=== PATIENT | male | born 1975 | race Caucasian/White ===

== ENCOUNTER 2016-07-18 12:22 | Day surgery (SDC) | payer OTHER ==
--- NOTE | ~2016-07-18 | OP ---
Record Of Operation [facility] [address] [place]. [address] NAME: JEAN MENDOZA : 75 STATUS : [facility]#: [id number] AGE: 41 ADM/REG DATE : 07/18/16 MR#: [id number] REPORT SERV DATE: 07/19/16 DICTATED BY: SANCHEZ BRAGA DATE: 07/19/16 REPORT STATUS : Draft TRANSCRIBED BY: MODL DATE: 07/19/16 DATE OF PROCEDURE: 07/18/2016 PREOPERATIVE DIAGNOSIS: Acute appendicitis. POSTOPERATIVE DIAGNOSIS: Acute suppurative appendicitis. PROCEDURE: Laparoscopic appendectomy. DESCRIPTION OF OPERATIVE PROCEDURE: The patient was brought to the operating suite, placed in supine position, underwent satisfactory general endotracheal anesthesia without incident. The skin of the abdomen was scrubbed, prepped, and draped in usual sterile fashion. 0.5% Marcaine with epinephrine was utilized as supplemental local anesthesia. Initially, an infraumbilical incision was performed dissecting through the skin and subcutaneous tissue. The umbilical fascia was grasped and elevated and a disposable Veress insufflation needle was inserted into the peritoneal cavity. Intraperitoneal tip location was ascertained using the saline hanging drop method following which CO2 was insufflated for pressures of 15 mmHg throughout the case. After adequate insufflation pressure achieved, Veress needle was removed, disposable bladed/shielded 12 mm trocar was inserted through the umbilical fascia into the peritoneal cavity following which a rigid forward-viewing 10 mm laparoscope was inserted. Visualization of the intraabdominal parietes revealed no evidence of injury from initial insufflation or puncture. Two additional 5 mm trocars were placed, one in the suprapubic midline and the second one in the epigastric midline, both placed under direct visualization. The patient was placed in Trendelenburg position with the left side tilted towards the industrial machine operator. Visualization of the ileocecum revealed acute suppurative appendicitis. The appendix was freed up bluntly, was not ruptured, it was grasped gently. An avascular window was created in the mesoappendix at the junction of the appendix base and the cecum. An EndoGIA 45 mm linear stapler with GI load was placed across the base of the appendix, closed and fired transecting the appendix. Hemostasis was assured. Next, the same stapler was used with a vascular load to transect the mesoappendix and again hemostasis was assured. The appendix placed inside an Endo retrieval pouch and then irrigation of the ileocecum in the right lower quadrant was performed with saline and aspirated. Hemostasis was reassured for the final time. Next, the trocars removed. No muscular bleeding was noted. The appendix was delivered through via Endo retrieval pouch through the umbilicus. CO2 was allowed to egress from the peritoneal cavity. Record Of Operation [address] [place]. [address] NAME: JEAN MENDOZA : 75 STATUS : [facility] PAT#: [id number] AGE: 41 ADM/REG DATE : 07/18/16 MR#: [id number] REPORT SERV DATE: 07/19/16 DICTATED BY: SANCHEZ BRAGA DATE: 07/19/16 REPORT STATUS : Draft TRANSCRIBED BY: REID DATE: 07/19/16 The umbilicus was closed with [id number] suture of 0 Vicryl, subcutaneous tissue closed with interrupted 4-0 Vicryl, running subcuticular stitch of 4-0 Vicryl for the skin. Dermabond skin adhesive placed. The patient tolerated the procedure well and was returned to PACU in stable condition. At the termination of the procedure, sponge, needle, lap, and instrument counts were correct x3. ESTIMATED BLOOD LOSS: Less than 10 mL. KISHOR/REID Sanchez Braga M.D. / [id number] CC: Dayday Lucas F. MARK
[2016-07-18 13:02] LABS: HEMATOCRIT 40.1 % (40.0-51.0); HEMOGLOBIN 14.8 g/dL (13.6-17.8)
== END 2016-07-18 20:12 | disposition home or self-care (01) ==
LOC: SDC 12:22
PROVIDERS: Specialist
PROC: 0DTJ4ZZ Resection of Appendix, Percutaneous Endoscopic Approach (ICD-10-PCS; principal; 2016-07-18 13:30)
DX: K35.3 Acute appendicitis with localized peritonitis (principal); Z79.899 Other long term (current) drug therapy
CPT/HCPCS: 85014; 85018; 88304; A9270-GY; J0690; J1885; J2250; J2405; J3010